=== PATIENT | female | born 1985 ===

== ENCOUNTER 2017-11-07 16:03 | Emergency (ER) | payer OTHER ==
[2017-11-07 16:20] VITALS: O2SAT 98
[2017-11-07] MEDS ORDERED: Sodium Chloride 0.9% 1,000 ML IV STA (17:17)
--- NOTE | 2017-11-07 17:26 | ED PDOC ---
HPI: Abdomen Time Seen by Provider: 11/07/17 16:36 Chief Complaint (Nursing): Abdominal Pain History Per: Patient, Healthcare Management Consultant History/Exam Limitations: language barrier Onset/Duration Of Symptoms: Days Current Symptoms Are (Timing): Still Present Severity: Moderate Pain Scale Rating Of: 6 Location Of Pain/Discomfort: Epigastric Quality Of Discomfort: Burning, Pressure Associated Symptoms: Nausea, Vomiting. denies: Fever, Chills Alleviating Factors: Other (mild relief with ibprofen initially but worse after ) Last Bowel Movement: Today Additional Complaint(s): CC: stomach pain HPI: 31 YO Female with no sig PMHx presents to [facility] ED for abdominal pain. Pt states that the pain is located in the epigastria, described as burning, pressure type of pain with occasional radiation to the back. Per pt pain started 2 weeks ago, initially episodes were intermittent but since yesterday pain has been persistent, oscillates between 5-9/10. Associated symptoms include nausea and emesis last one this morning, NBNB. Pt states that she took a Ibuprofen last night for pain, initially pain was better but after a few mins pain came back and was worse then before. Pain is worse after eating. Last BM this AM, more soft then normal, NB. Denies chills, fever, symptoms. Omani speaking pt, Indemand used for translation [id number]. Son by bedside PMD: none PMHx: denies SurgHx: denies SH: denies smoking and illicit drug use, endorsing social ETOH FH: hx of cirrhosis in father Allergies: NKDA Meds: none Past Medical History Vital Signs: Last Vital Signs Temp 98.6 F 11/07/17 16:19 Pulse 85 11/07/17 16:19 Resp 19 11/07/17 16:19 BP 104/48 L 11/07/17 16:19 Pulse Ox 98 11/07/17 18:13 - Medical History PMH: No Chronic Diseases - Surgical History Surgical History: No Surg Hx - Family History Family History: States: Other - Living Arrangements Living Arrangements: With Family - Social History Current smoker - smoking cessation education provided: No Alcohol: Social Drugs: Denies - Home Medications Home Medications: Ambulatory Orders Medication Instructions Recorded Famotidine [Pepcid] 20 mg PO Q12 #20 tab 11/07/17 Ondansetron [Zofran] 4 mg PO Q8H #10 tab 11/07/17 - Allergies Allergies/Adverse Reactions: Allergies Allergy/AdvReac Type Severity Reaction Status Date / Time No Known Allergies Allergy Verified 11/07/17 16:18 Review of Systems Constitutional: Negative for: Fever, Chills, Weight loss Cardiovascular: Negative for: Chest Pain, Palpitations Respiratory: Negative for: Cough, Shortness of Breath Gastrointestinal: Positive for: Nausea, Vomiting, Abdominal Pain. Negative for : Diarrhea, Constipation Genitourinary Female: Negative for: Dysuria, Frequency, Hematuria Neurological: Negative for: Weakness, Numbness Physical Exam - Physical Exam Appears: Positive for: Uncomfortable Skin: Positive for: Normal Color Eye Exam: Positive for: Normal appearance, EOMI Neck: Positive for: Normal, Painless ROM Cardiovascular/Chest: Positive for: Regular Rate, Rhythm. Negative for: Murmur Respiratory: Positive for: Normal Breath Sounds. Negative for: Wheezing Gastrointestinal/Abdominal: Positive for: Bowel Sounds, Soft, Tenderness ( tenderness to palpation of the epigastria, no skin changes, no discoloration ), Other (Bobo's sign neg ). Negative for: Distended, Guarding, Rebound Back: Positive for: Normal Inspection. Negative for: L CVA Tenderness, R CVA Tenderness Extremity: Positive for: Normal ROM. Negative for: Tenderness, Pedal Edema Neurologic/Psych: Positive for: Alert - Laboratory Results Result Diagrams: 11/07/17 17:31 11/07/17 17:31 - ECG O2 Sat by Pulse Oximetry: 98 - Progress ED Course And Treament: 31 YO Female with epigastric pain. VS table, pt afebrile. -cbc, cmp, lipase -Upreg -Udip -IVFs -Zofran, pepsid -Tylenol Blood work, and Udip and upreg all wnl. Lipase neg. 18:45--pt seen and re-evaluated. States that her nausea and abdominal pain as resolved at this time. Pt feels a lot better. Pt educated on gastritis, diet and lifestyle modifications Will d/c pt home with follow up in [facility]. D/c home with pepsid, and zofran. Pt agrees with plan. Disposition - Clinical Impression Clinical Impression: Gastritis - Disposition Referrals: [facility] [Outside] Disposition: Routine/Home Disposition Time: 19:21 Condition: FAIR Prescriptions: Famotidine [Pepcid] 20 mg PO Q12 #20 tab Ondansetron [Zofran] 4 mg PO Q8H #10 tab Instructions: Gastritis Forms: [facility] (Thai)
[2017-11-07 17:41] LABS: BASO % 0.6 % (0.0-2.0); EOS # 0.1 K/uL (0.0-0.7); EOS % 1.4 % (0.0-4.0); HEMOGLOBIN 12.9 g/dL (12.0-16.0); LYMPH # 1.5 K/uL (1.0-4.3); MEAN CELL VOLUME 86.8 fl (81.0-99.0); MEAN CORPUSCULAR HEMOGLOBIN 29.6 pg (27.0-31.0); MEAN CORPUSCULAR HGB CONC 34.1 g/dL (33.0-37.0); MEAN PLATELET VOLUME 8.1 fl (7.2-11.7); MONO # 0.6 K/uL (0.0-0.8); MONO % 7.3 % (0.0-10.0); NEUT # 5.4 K/uL (1.8-7.0); NEUT % 70.7 % (50.0-75.0); NRBC % 0.1 % (0.0-0.0); RBC 4.36 Mil/uL (3.80-5.20); RED CELL DISTRIBUTION WIDTH 13.4 % (11.5-14.5); WHITE BLOOD COUNT 7.6 K/uL (4.8-10.8)
[2017-11-07 17:57] LABS: ALB/GLOB RATIO 1.4 (1.0-2.1); ALBUMIN 4.3 g/dL (3.5-5.0); ALT/SGPT 33 U/L (9-52); AST/SGOT 25 U/L (14-36); BLOOD UREA NITROGEN 12 mg/dl (7-17); CALCIUM 9.5 mg/dL (8.4-10.2); GFR AFRICAN-AMERICAN > 60; GFR NON-AFRICAN AMERICAN > 60; LIPASE 76 U/L (23-300)
[2017-11-07 19:29] VITALS: BP 100/51; PULSE 72; RESP 16; TEMP 98.4
== END 2017-11-07 19:07 | disposition home or self-care (01) ==
LOC: H.ER 16:03
DX: K29.70 Gastritis, unspecified, without bleeding (principal)
CPT/HCPCS: 80053; 81025; 83690; 85025; 96361; 96374; 96375; 99283; J2405; J7030

== ENCOUNTER 2017-11-07 23:19 | Emergency (ER) | payer SELFPAY ==
[2017-11-07 23:23] VITALS: RESP 18; O2SAT 100
[2017-11-07] MEDS ORDERED: Sodium Chloride 0.9% 1,000 ML IV STA (23:31)
[2017-11-07] MEDS ORDERED: Sodium Chloride 0.9% 50 ML IV ONE (23:43)
[2017-11-07] MEDS ORDERED: Iohexol 300 100 ML IJ ONE (23:43)
--- NOTE | 2017-11-07 23:45 | ED PDOC ---
HPI: Abdomen Time Seen by Provider: 11/07/17 23:25 Chief Complaint (Nursing): Abdominal Pain Chief Complaint (Provider): Abdominal Pain History Per: Patient History/Exam Limitations: no limitations Onset/Duration Of Symptoms: Days (x1) Current Symptoms Are (Timing): Still Present Location Of Pain/Discomfort: Diffuse Associated Symptoms: Nausea, Vomiting, Diarrhea. denies: Fever, Urinary Symptoms Additional Complaint(s): Sasha Flores is a 31 year old female with no past medical history who is presenting to the ED with complaints of abdominal pain with associated nausea, vomiting, and diarrhea. Patient was seen here earlier today for the same complaints where she received Zofran IV and was discharged with prescription for Pepcid and Zofran which she hasn't started. She reports that the pain has worsened which prompted this ED visit. Patient denies any fever or genitourinary symptoms. PMD: none provided Past Medical History Reviewed: Historical Data, Nursing Documentation, Vital Signs Vital Signs: Last Vital Signs Temp 98.2 F 11/08/17 03:45 Pulse 78 11/08/17 03:45 Resp 18 11/08/17 03:45 BP 109/58 L 11/08/17 03:45 Pulse Ox 100 11/08/17 03:45 - Medical History PMH: No Chronic Diseases - Surgical History Surgical History: No Surg Hx - Family History Family History: States: Unknown Family Hx - Social History Current smoker - smoking cessation education provided: No Alcohol: None Drugs: Denies - Home Medications Home Medications: Ambulatory Orders Medication Instructions Recorded Famotidine [Pepcid] 20 mg PO Q12 #20 tab 11/07/17 Ondansetron [Zofran] 4 mg PO Q8H #10 tab 11/07/17 Dicyclomine [Bentyl] 20 mg PO BID #30 tab 11/08/17 Famotidine [Pepcid] 20 mg PO BID #20 tab 11/08/17 - Allergies Allergies/Adverse Reactions: Allergies Allergy/AdvReac Type Severity Reaction Status Date / Time No Known Allergies Allergy Verified 11/07/17 16:18 Review of Systems ROS Statement: Except As Marked, All Systems Reviewed And Found Negative Constitutional: Negative for: Fever Gastrointestinal: Positive for: Nausea, Vomiting, Abdominal Pain, Diarrhea Genitourinary Female: Negative for: Dysuria, Frequency, Incontinence, Hematuria , Vaginal Bleeding Physical Exam - Reviewed Nursing Documentation Reviewed: Yes Vital Signs Reviewed: Yes - Physical Exam Appears: Positive for: Non-toxic, In Acute Distress (mild painful) Head Exam: Positive for: ATRAUMATIC, NORMAL INSPECTION, NORMOCEPHALIC Skin: Positive for: Normal Color, Warm, DRY Eye Exam: Positive for: EOMI, Normal appearance, PERRL ENT: Positive for: Normal ENT Inspection Neck: Positive for: Normal, Painless ROM Cardiovascular/Chest: Positive for: Regular Rate, Rhythm. Negative for: Murmur Respiratory: Positive for: Normal Breath Sounds. Negative for: Respiratory Distress Gastrointestinal/Abdominal: Positive for: Soft, Tenderness (generalized diffuse tenderness). Negative for: Mass, Guarding, Rebound Back: Positive for: Normal Inspection. Negative for: L CVA Tenderness, R CVA Tenderness, Vertebral Tenderness Extremity: Positive for: Normal ROM. Negative for: Deformity, Swelling Neurologic/Psych: Positive for: Alert, Oriented. Negative for: Motor/Sensory Deficits - Laboratory Results Result Diagrams: 11/07/17 23:55 11/07/17 23:55 - ECG O2 Sat by Pulse Oximetry: 100 (RA) Pulse Ox Interpretation: Normal Medical Decision Making Medical Decision Making: Time: 23:30 Impression: abdominal pain, with vomiting and diarrhea Differentials: gastroenteritis, appendicitis, cholecystitis Plan: --CT Abd/Pelvis --CMP --Lipase --CBC --PTT--Coag --Morphine 2 mg IV --IV Fluids --Zofran 4 mg IV --Urinalysis Scribe Attestation: Documented byCheri acting as a scribe for Lisa Longoria MD. Provider Scribe Attestation: All medical record entries made by the Scribe were at my direction and personally dictated by me. I have reviewed the chart and agree that the record accurately reflects my personal performance of the history, physical exam, medical decision making, and the department course for this patient. I have also personally directed, reviewed, and agree with the discharge instructions and disposition. Disposition - Clinical Impression Clinical Impression: Abdominal cramps - Disposition Referrals: [facility] [Outside] [facility] [Outside] Disposition: Transfer of Care Disposition Time: 00:00 Condition: STABLE Prescriptions: Dicyclomine [Bentyl] 20 mg PO BID #30 tab Famotidine [Pepcid] 20 mg PO BID #20 tab Instructions: Acute Abdomen (Belly Pain), Adult (DC) Forms: [employer] (Belarusian) Patient Signed Over To: Armond Grullon
[2017-11-08 00:09] LABS: BASO % 0.5 % (0.0-2.0); EOS # 0.1 K/uL (0.0-0.7); EOS % 0.7 % (0.0-4.0); HEMOGLOBIN 12.4 g/dL (12.0-16.0); LYMPH # 1.2 K/uL (1.0-4.3); LYMPH % 13.1 % (20.0-40.0); MEAN CORPUSCULAR HEMOGLOBIN 29.6 pg (27.0-31.0); MEAN PLATELET VOLUME 8.2 fl (7.2-11.7); MONO # 0.9 K/uL (0.0-0.8); MONO % 9.5 % (0.0-10.0); NEUT # 7.2 K/uL (1.8-7.0); NEUT % 76.2 % (50.0-75.0); RBC 4.19 Mil/uL (3.80-5.20); RED CELL DISTRIBUTION WIDTH 13.2 % (11.5-14.5); WHITE BLOOD COUNT 9.4 K/uL (4.8-10.8)
[2017-11-08 00:13] LABS: SQUAMOUS EPITHIAL 1 /hpf (0-5); URINE BACTERIA RARE (<OCC); URINE BILIRUBIN NEGATIVE (NEGATIVE); URINE BLOOD NEGATIVE (NEGATIVE); URINE CLARITY CLEAR (Clear); URINE COLOR COLORLESS (YELLOW); URINE GLUCOSE (UA) NEG (Normal); URINE LEUKOCYTE ESTERASE NEG Leu/uL (Negative); URINE PROTEIN NEGATIVE (NEGATIVE); URINE UROBILINOGEN 0.2-1.0 mg/dL (0.2-1.0)
[2017-11-08 00:19] LABS: PARTIAL THROMBOPLASTIN TIME 27.6 Seconds (25.6-37.1); PROTHROMBIN TIME 10.9 Seconds (9.8-13.1)
[2017-11-08 00:50] LABS: ALB/GLOB RATIO 1.4 (1.0-2.1); ALBUMIN 4.3 g/dL (3.5-5.0); ALT/SGPT 32 U/L (9-52); AST/SGOT 24 U/L (14-36); BLOOD UREA NITROGEN 9 mg/dl (7-17); GFR AFRICAN-AMERICAN > 60; GFR NON-AFRICAN AMERICAN > 60; LIPASE 74 U/L (23-300)
--- NOTE | 2017-11-08 02:35 | ED PDOC ---
- Laboratory Results Result Diagrams: 11/07/17 23:55 11/07/17 23:55 - ECG O2 Sat by Pulse Oximetry: 100 (RA) Pulse Ox Interpretation: Normal Medical Decision Making Medical Decision Making: Time: 00:00 Patient signed out to me by Dr. Longoria pending CT and reevaluation. CT Abd/Pelvis: FINDINGS: Lower thorax: No acute findings. ABDOMEN: Liver: Normal. No mass. Gallbladder and bile ducts: Normal. No calcified stones. No ductal dilation. Pancreas: Normal. No ductal dilation. Spleen: Normal. No splenomegaly. Adrenals: Normal. No mass. Kidneys and ureters: Small right kidney cyst. Stomach and bowel: A few loops of distal small bowel with questionable wall thickening as can be seen with enteritis. Appendix: No evidence of appendicitis. PELVIS: Bladder: Unremarkable as visualized. Reproductive: IUD is present. Right adnexal 3.6 x 2.7 cm cyst. ABDOMEN and PELVIS: Intraperitoneal space: Small volume ascites. Bones/joints: No acute fracture. No dislocation. Soft tissues: Unremarkable. Vasculature: Normal. No abdominal aortic aneurysm. Lymph nodes: Normal. No enlarged lymph nodes. IMPRESSION: A few loops of distal small bowel with wall thickening as can be seen with enteritis. Upon provider reevaluation patient is feeling better, is medically stable, and requires no further treatment in the ED at this time. Patient will be discharged. Counseling was provided and all questions were answered regarding diagnosis and need for follow up with PMD. There is agreement to discharge plan. Return if symptoms persist or worsen. Scribe Attestation: Documented by, Cheri Botello acting as a scribe for Armond Grullon MD. Provider Scribe Attestation: All medical record entries made by the Scribe were at my direction and personally dictated by me. I have reviewed the chart and agree that the record accurately reflects my personal performance of the history, physical exam, medical decision making, and the department course for this patient. I have also personally directed, reviewed, and agree with the discharge instructions and disposition. Disposition - Clinical Impression Clinical Impression: Abdominal cramps - POA Present On Arrival: None - Disposition Referrals: [facility] [Outside] [facility] [Outside] Disposition: Routine/Home Disposition Time: 03:29 Condition: STABLE Prescriptions: Dicyclomine [Bentyl] 20 mg PO BID #30 tab Famotidine [Pepcid] 20 mg PO BID #20 tab Instructions: Acute Abdomen (Belly Pain), Adult (DC) Forms: [employer] (Bengali)
[2017-11-08 04:34] VITALS: BP 109/58; PULSE 78; TEMP 98.2
--- NOTE | 2017-11-08 11:11 | CT ---
Date of service: 11/07/2017 PROCEDURE: CT Abdomen and Pelvis with Oral contrast. HISTORY: Gen abd pain, v/d COMPARISON: None. TECHNIQUE: Contiguous axial images of the abdomen and pelvis. Additional 2D sagittal and coronal reformats generated. Radiation dose: Total exam DLP = 392.21 mGy-cm. This CT exam was performed using one or more of the following dose reduction techniques: Automated exposure control, adjustment of the mA and/or kV according to patient size, and/or use of iterative reconstruction technique. . FINDINGS: LOWER THORAX: Heart size within range of normal. No significant pericardial effusion. Tiny hiatal hernia. Lung bases clear. LIVER: Liver exhibits normal size. Mild diffuse fatty hepatic infiltration. Small calcification within the right lobe liver suggesting prior exposure to a granulomatous disease process. No obvious hepatic mass collection or calcification. Portal and splenic veins are opacified. GALLBLADDER AND BILE DUCTS: Gallbladder is physiologically distended. No evidence of intraluminal gallbladder calculi. PANCREAS: Unremarkable. No mass. No ductal dilatation. SPLEEN: Unremarkable. No splenomegaly. Small splenule seen adjacent to anterior superior main body of the spleen. ADRENALS: No adrenal lesions. KIDNEYS AND URETERS: Unremarkable. No stone or hydronephrosis. Small approximately 11.9 mm low-attenuation focus lateral cortex mid pole right kidney could represent hyperdense cyst. Followup ultrasound could be performed to confirm. BLADDER: Urinary bladder is incompletely distended which presumably accounts for thick-walled appearance. Correlation with urinalysis recommended. . REPRODUCTIVE: In situ Copper-T IUD with a small amount of surrounding free fluid in the pelvis/cul-de-sac. . Probable on right ovarian cyst measuring approximately 2.8 cm. Pelvic ultrasound followup could be performed further evaluation. APPENDIX: Unremarkable. BOWEL: Evaluation of the bowel is somewhat limited due to the lack of oral contrast material. Stomach is collapsed which presumably in part accounts for thick-walled appearance. Gastritis or other intrinsic/invasive wall lesion not excluded. The there are several on mildly distended fluid-filled loops of small bowel within 1 or 2 loops in that exhibit wall thickening in the left parasagittal upper pelvis region of. Findings suggest enteritis. Stool and air seen throughout the large bowel some of which appears liquid in the cecum region. PERITONEUM: Unremarkable. There is small amount of free fluid seen in the pelvis/cul-de-sac. No free air. LYMPH NODES: Unremarkable. No enlarged lymph nodes. VASCULATURE: Unremarkable. No aortic aneurysm. BONES: No fracture or destructive lesion. OTHER FINDINGS: None. IMPRESSION: Findings suggest localized enteritis as described. Suspect small right adnexal cyst with a small amount of free fluid seen in the pelvis. Fatty hepatic infiltration. Probable hyperdense cyst right kidney. Followup ultrasound could be performed to confirm. Small splenule.
== END 2017-11-08 03:51 | disposition home or self-care (01) ==
LOC: H.ER 23:19
DX: R10.9 Unspecified abdominal pain (principal)
CPT/HCPCS: 74177; 80053; 81003; 81025; 83690; 85025; 85610; 85730; 99283; J2270; J2405; J7030; Q9967

== ENCOUNTER 2018-04-23 15:09 | Emergency (ER) | payer OTHER ==
[2018-04-23 15:34] VITALS: O2SAT 98
[2018-04-23] MEDS ORDERED: Sodium Chloride 0.9% 1,000 ML IV STA (16:49)
--- NOTE | 2018-04-23 17:16 | ED PDOC ---
HPI: Abdomen Time Seen by Provider: 04/23/18 16:46 Chief Complaint (Nursing): GI Problem Chief Complaint (Provider): GI Problem History Per: Patient History/Exam Limitations: no limitations Onset/Duration Of Symptoms: Hrs Current Symptoms Are (Timing): Still Present Additional Complaint(s): 32 y/o female with no significant PMHx presents to the ED for evaluation of abd ominal pain associated with non-bloody, non-bilious vomiting since 9 AM. Patient reports of taking Pepto Bismol with no relief. Denies dysuria. PMD: no provider LNMP: 04/12/2018 Last Menstral Period: 04/12/2018 Past Medical History Reviewed: Historical Data, Nursing Documentation, Vital Signs Vital Signs: Last Vital Signs Temp 98.4 F 04/23/18 15:31 Pulse 89 04/23/18 15:31 Resp 18 04/23/18 15:31 BP 98/62 L 04/23/18 15:31 Pulse Ox 98 04/23/18 15:31 - Medical History PMH: No Chronic Diseases - Surgical History Surgical History: No Surg Hx - Family History Family History: States: Unknown Family Hx - Home Medications Home Medications: Ambulatory Orders Medication Instructions Recorded Famotidine [Pepcid] 20 mg PO Q12 #20 tab 11/07/17 Ondansetron [Zofran] 4 mg PO Q8H #10 tab 11/07/17 Dicyclomine [Bentyl] 20 mg PO BID #30 tab 11/08/17 Famotidine [Pepcid] 20 mg PO BID #20 tab 11/08/17 - Allergies Allergies/Adverse Reactions: Allergies Allergy/AdvReac Type Severity Reaction Status Date / Time No Known Allergies Allergy Verified 04/23/18 15:30 Review of Systems ROS Statement: Except As Marked, All Systems Reviewed And Found Negative Gastrointestinal: Positive for: Vomiting, Abdominal Pain Genitourinary Female: Negative for: Dysuria Physical Exam - Reviewed Nursing Documentation Reviewed: Yes Vital Signs Reviewed: Yes - Physical Exam Appears: Positive for: No Acute Distress Head Exam: Positive for: ATRAUMATIC, NORMOCEPHALIC Skin: Positive for: Normal Color, Warm, Dry Eye Exam: Positive for: Normal appearance, EOMI, PERRL Neck: Positive for: Normal, Painless ROM Cardiovascular/Chest: Positive for: Regular Rate, Rhythm Respiratory: Positive for: Normal Breath Sounds. Negative for: Respiratory Distress Gastrointestinal/Abdominal: Positive for: Normal Exam, Soft. Negative for: Tenderness Extremity: Positive for: Normal ROM. Negative for: Deformity Neurologic/Psych: Positive for: Alert, Oriented. Negative for: Motor/Sensory Deficits - Laboratory Results Result Diagrams: 04/23/18 17:29 04/23/18 17:29 - ECG O2 Sat by Pulse Oximetry: 98 (RA) Pulse Ox Interpretation: Normal Medical Decision Making Medical Decision Making: Time: 1649 A/P: Workup for gastritis vs other pathology -- Labs -- GI Cocktail -- Reassess patient -- CMP -- Lipase -- CBC with Differentials -- Sodium Chloride IV 1000 mls/hr -- Pepcid 40 mg IV -- Zofran Inj 4 mg IVP Scribe Attestation: Documented by Ginger Shah, acting as a scribe for Michelle Benavidez PA-C. Provider Scribe Attestation: All medical record entries made by the Scribe were at my direction and personally dictated by me. I have reviewed the chart and agree that the record accurately reflects my personal performance of the history, physical exam, medical decision making, and the department course for this patient. I have also personally directed, reviewed, and agree with the discharge instructions and disposition. Disposition - Clinical Impression Clinical Impression: Vomiting - Disposition Disposition: Routine/Home Disposition Time: 17:15 Condition: IMPROVED Additional Instructions: Follow up with primary medical doctor. Return to the emergency department if symptoms worsen. Instructions: Nausea and Vomiting, Adult (DC) Forms: [facility] (Costa Rican), [facility] (Bermudian) Print Language: GEORGIAN
[2018-04-23 17:36] LABS: BASO % 0.2 % (0.0-2.0); EOS # 0.1 K/uL (0.0-0.7); EOS % 0.8 % (0.0-4.0); HEMOGLOBIN 13.7 g/dL (12.0-16.0); LYMPH # 0.6 K/uL (1.0-4.3); LYMPH % 7.1 % (20.0-40.0); MEAN CELL VOLUME 84.6 fl (81.0-99.0); MEAN CORPUSCULAR HGB CONC 33.1 g/dL (33.0-37.0); MEAN PLATELET VOLUME 8.3 fl (7.2-11.7); MONO # 0.4 K/uL (0.0-0.8); MONO % 4.6 % (0.0-10.0); NEUT # 7.2 K/uL (1.8-7.0); NEUT % 87.3 % (50.0-75.0); PLATELET COUNT 294 K/uL (130-400); RBC 4.91 Mil/uL (3.80-5.20); RED CELL DISTRIBUTION WIDTH 14.2 % (11.5-14.5); WHITE BLOOD COUNT 8.3 K/uL (4.8-10.8)
[2018-04-23 17:43] LABS: ALB/GLOB RATIO 1.3 (1.0-2.1); ALBUMIN 4.5 g/dL (3.5-5.0); ALT/SGPT 26 U/L (9-52); AST/SGOT 26 U/L (14-36); BLOOD UREA NITROGEN 15 mg/dl (7-17); CALCIUM 8.8 mg/dL (8.4-10.2); GFR NON-AFRICAN AMERICAN > 60; LIPASE 58 U/L (23-300)
[2018-04-23 19:08] LABS: ANISOCYTOSIS SLIGHT; BASOPHIL 1 % (0-2); EOSINOPHIL 1 % (0-7); LYMPHOCYTE 9 % (20-50); MONOCYTE 5 % (0-10); NEUTROPHIL 84 % (42-75); PLATELET ESTIMATE NORMAL (NORMAL); TOTAL CELLS COUNTED 100
[2018-04-23 19:09] LABS: LARGE PLATELETS PRESENT; OVALOCYTES SLIGHT
[2018-04-23 19:26] VITALS: BP 127/81; PULSE 74; RESP 15; TEMP 98.9
== END 2018-04-23 19:50 | disposition home or self-care (01) ==
LOC: H.ER 15:09
DX: R11.10 Vomiting, unspecified (principal)
CPT/HCPCS: 80053; 81025; 83690; 85025; 96374; 96375; 99284; J2405; J7030